=== PATIENT | male | born 1945 | race Two or more races ===

== ENCOUNTER 2017-09-20 13:37 | Emergency (ER) | payer MEDICARE, MEDICAID ==
[~2017-09-20] VITALS: Ht 170.2 cm; Wt 76.2 kg
[2017-09-20 16:47] VITALS: BP 124/70
== END 2017-09-20 16:47 | disposition home or self-care (01) ==
LOC: ED 13:37
DX: S06.0X0A Concussion without loss of consciousness, initial encounter (principal); S00.83XA Contusion of other part of head, initial encounter; E11.9 Type 2 diabetes mellitus without complications; W22.8XXA Striking against or struck by other objects, initial encounter; Y93.89 Activity, other specified; Y92.89 Other specified places as the place of occurrence of the external cause; Y99.8 Other external cause status
CPT/HCPCS: 82962; J1885